=== PATIENT | female | born 1975 | race Caucasian/White ===

== ENCOUNTER 2020-08-27 08:14 | Emergency (ER) | payer OTHER ==
[2020-08-27] MEDS ORDERED: predniSONE 20 MG TAB ONE (08:48)
== END 2020-08-27 08:56 | disposition home or self-care (01) ==
LOC: MADERS 08:14
DX: J30.2 Other seasonal allergic rhinitis (principal); F17.210 Nicotine dependence, cigarettes, uncomplicated
CPT/HCPCS: 99283; J7512